=== PATIENT | female | born 1970 | race Asian ===

== ENCOUNTER 2016-09-23 11:58 | Emergency (ER) | payer BC ==
[~2016-09-23] VITALS: Ht 162.6 cm; Wt 54.4 kg
[2016-09-23] MEDS ORDERED: IBUPROFEN600 MG ORAL (12:47)
[2016-09-23 13:08] VITALS: BP 123/74
[2016-09-23 13:09] VITALS: BP 123/74
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
== END 2016-09-23 13:09 | disposition home or self-care (01) ==
LOC: EDBD 11:58 → EMR 12:40
DX: S00.03XA Contusion of scalp, initial encounter (principal); S50.311A Abrasion of right elbow, initial encounter; S60.511A Abrasion of right hand, initial encounter; S90.811A Abrasion, right foot, initial encounter; Y04.2XXA Assault by strike against or bumped into by another person, initial encounter; Y92.410 Unspecified street and highway as the place of occurrence of the external cause
CPT/HCPCS: 99283